=== PATIENT | male | born 1990 ===

== ENCOUNTER 2021-03-17 18:40 | Emergency (ER) | payer SELFPAY ==
[~2021-03-17] VITALS: Ht 170 cm; Wt 106.0 kg
[2021-03-17] MEDS ORDERED: AMOX-358 PO (19:41)
--- NOTE | 2021-03-17 19:42 | ED Upper Extremity ---
General Chief Complaint: Upper Extremity Stated Complaint: R HAND PALM SWELLING/PAIN Source: patient Exam Limitations: no limitations (ITZ PATRICK APRN) History of Present Illness Date Seen by Provider: Mar 17, 2021 Time Seen by Provider: 19:38 Initial Comments To ER with redness pain and swelling to the thenar eminence palmar side right hand been there for about 2 days. Has a red streak going up the volar aspect of the right forearm. This terminates at the elbow. Does not recall any injury. Tetanus is not up-to-date. Onset: just prior to arrival Severity: moderate Pain/Injury Location: right hand Method of Injury: unknown Modifying Factors: Improves With Movement (ITZ PATRICK APRN) Allergies and Home Medications Allergies Coded Allergies: No Known Drug Allergies (Unverified , 03/17/21) Patient Home Medication List Home Medication List Reviewed: Yes (ITZ PATRICK APRN) Amoxicillin/Potassium Clav (Augmentin 875-125 Tablet) 1 Each Tablet, 1 EACH PO BID Prescribed by: ITZ PATRICK on 03/17/211940 Review of Systems Constitutional: see HPI EENTM: see HPI Respiratory: no symptoms reported Cardiovascular: no symptoms reported Genitourinary: no symptoms reported Musculoskeletal: no symptoms reported Skin: no symptoms reported Psychiatric/Neurological: No Symptoms Reported (ITZ PATRICK APRN) Past Qbsjwpk-Oyiuyf-Rnygdr Hx Patient Social History Tobacco Use?: Yes Tobacco type used: Cigarettes Smokeless Tobacco Frequency: Current Everyday User Substance use?: No Alcohol Use?: No (ITZ PATRICK APRN) Past Medical History Surgery/Hospitalization HX: wrist surgery (ITZ PATRICK APRN) Physical Exam Vital Signs Vital Signs - First Documented 03/17/21 20:17 Temp 37.1 Pulse 109 Resp 18 B/P (MAP) 132/88 (103) Pulse Ox 98 O2 Delivery Room Air (BISILIVA Ema DO) Vital Signs Capillary Refill : (ITZ PATRICK APRN) Height, Weight, BMI Height: '" Weight: lbs. oz. kg; BMI Method: General Appearance: WD/WN, no apparent distress HEENT: PERRL/EOMI, normal ENT inspection Respiratory: no respiratory distress, no accessory muscle use Neurologic/Tendon: normal sensation Neurologic/Psychiatric: alert, normal mood/affect, oriented x 3 Skin: normal color, warm/dry, other (There is erythema to the thenar eminence of the right hand. No fluctuance. Central ulceration of about 4 mm area. There is lymphangitis up the volar aspect of the forearm terminating at the elbow.) (ITZ PATRICK APRN) Progress/Results/Core Measures Results/Orders Medications Given in ED Current Medications Medications Dose Ordered Sig/Hamida Route Start Time Stop Time Status Last Admin Dose Admin Ceftriaxone Sodium 1,000 mg ONCE ONCE IM 03/17/21 19:45 03/17/21 19:46 DC 03/17/21 19:55 1,000 MG Diphtheria/ Tetanus/Acell Pertussis 0.5 ml ONCE ONCE IM 03/17/21 19:45 03/17/21 19:46 DC 03/17/21 19:57 0.5 ML Lidocaine HCl 2.1 ml ONCE ONCE INJ 03/17/21 19:45 03/17/21 19:46 DC 03/17/21 19:55 2.1 ML (MARIO MATHEWS DO) Vital Signs/I&O 03/17/21 03/17/21 20:17 20:21 Temp 37.1 37.1 Pulse 109 109 Resp 18 18 B/P (MAP) 132/88 (103) 132/88 Pulse Ox 98 98 O2 Delivery Room Air Room Air (MARIO MATHEWS DO) Departure Impression Primary Impression: Soft tissue infection Additional Impression: Lymphangitis Disposition: 01 HOME, SELF-CARE Condition: Stable Departure-Patient Inst. Decision time for Depature: 19:40 (ITZ PATRICK APRN) Referrals: [facility] [place] (PCP/Family) Primary Care Physician Patient Instructions: Cellulitis (Skin Infection), Adult ED Add. Discharge Instructions: 1. Antibiotics as directed. Return to ER for any concerns. Follow-up with your doctor next week. All discharge instructions reviewed with patient and/or family. Voiced understanding. Scripts Amoxicillin/Potassium Clav (Augmentin 875-125 Tablet) 1 Each Tablet 1 EACH PO BID, #14 TAB 0 Refills Prov: ITZ PATRICK APRN 03/17/21 ATTENDING PHYSICIAN NOTE: I WAS PHYSICALLY PRESENT ER PHYSICIAN WHEN THIS PATIENT WAS IN ER, BUT I WAS NOT INVOLVED IN ANY DECISION MAKING OR ANY CARE OF THIS PATIENT. (MARIO MATHEWS DO) Images Extremities-Upper 1 - Cellulitis, Edema (ITZ PATRICK APRN) ITZ PATRICK APRN Mar 17, 2021 19:42 MARIO MATHEWS DO Mar 18, 2021 04:12
[2021-03-17] MEDS ORDERED: TETANUS,DIPTH,PERTUSS P/F (BOOSTRIX) 0.5 ML VIAL IM ONE (19:45)
[2021-03-17] MEDS ORDERED: LIDOCAINE 1% INJ 20 ML VIAL INJ ONE (19:45)
[2021-03-17] MEDS ORDERED: cefTRIAXone 1,000 MG VIAL IM ONE (19:45)
--- NOTE | 2021-03-17 20:13 | Diagnostic Imaging Report ---
EXAMINATION: Right hand radiographs, 3 views. COMPARISON: None. HISTORY: 30-year-old male, swelling at the base of the thumb. FINDINGS: There is no identified acute fracture. There is no identified subluxation or dislocation. There is no identified radiopaque foreign body. The joint spaces are well preserved. IMPRESSION: 1. No identified acute bony abnormality of the right hand. Dictated by: Dictated on workstation # [id number]
[2021-03-17 20:21] VITALS: BP 132/88
== END 2021-03-17 20:26 | disposition home or self-care (01) ==
LOC: ER 18:43
DX: M79.89 Other specified soft tissue disorders (principal); I89.1 Lymphangitis; F17.210 Nicotine dependence, cigarettes, uncomplicated; Z23 Encounter for immunization
CPT/HCPCS: 73130; 90471; 90715; 96372